=== PATIENT | male | born 1980 | race Caucasian/White ===

== ENCOUNTER 2024-10-01 14:09 | Outpatient (REF) | payer MEDICAID, SELFPAY ==
--- OUTSIDE RECORDS SUMMARY | 2024-10-01 14:14 | XMS_ITS | Encounter Summary ---
Author Organization [employer] Address [address] [facility] [address] [place] [address] Care Team Providers Care Technical Communicator Name Role Phone Peterson Cavazos MD Primary Care Provider [phone] Encounter Details Date Type Department Care Team (Latest Contact Info) Description 10/01/2024 Travel Social History Tobacco Use Types Packs/Day Years Used Date Smoking Tobacco: Never Assessed Housing Stability Answer Date Recorded What is your housing situation today? I do not have housing (Staying with others, in a hotel, in a prison, living outside on the street, on a beach, in a car, or in a park 09/15/[address] you li ve. Do you have problems with any of the following? None of the above 09/15/2024 Food Insecurity Answer Date Recorded Within the past 12 months, y ou worried that your food would run out before you got money to buy more: Never True 09/15/2024 Within the past 12 months,th e food you bought just didn't last and you didn't have enough money to get more: Never True Transportation Answer Date Recorded In the past 12 months, has l ack of transportation kept you from medical appts, meetings, work or from getting things needed for daily living? No 09/15/2024 Utilities Answer Date Recorded In the past 12 months, has t he electric, gas, oil or water company threatened to shut off services in your home? No 09/15/2024 Internet Access Answer Date Recorded Internet Access Q1 No 09/15/2024 Internet Access Q2 I cannot afford it 09/15/2024 Sex and Gender Information Value Date Recorded Sex Assigned at Male 01/21/2022 10:17 AM EDT Legal Sex Male 10:17 AM EDT Gender Identity Male 01/21/2022 10:17 AM EDT Sexual Orientation Straight 01/21/2022 10 :17 AM EDT documented as of this encounter Plan of Treatment Upcoming Encounters Date Type Department Care Team (Late st Contact Info) Description 10/21/2024 3:30 PM EDT Office Visit [facility] [address] [place] [address] Peterson Cavazos MD [address] [place] [address] documented as of this encounter Visit Diagnoses Not on filedocumented in this encounter Care Teams Technical Communicator Relationship Specialty Start Date End Date Peterson Cavazos MD [address] [place] [address] PCP - General Internal Medicine 09/14/24 documented as of this encounter
[2024-10-01 16:02] LABS: MANUAL DIFF FLAG NO
[2024-10-01 16:15] LABS: Hematocrit 40.4 % (42.0-52.0); Hemoglobin 13.8 g/dl (14.0-18.0); Imm Gran Abs Auto 0.09 X10*3/uL (0.00-0.03); Imm Gran Pct Auto 1.1 % (0.0-0.4); Lymphocytes Absolute Auto 2.6 X10*3/uL (1.2-4.9); Mean Corpuscular HGB Conc 34.2 g/dl (31.0-36.0); Mean Corpuscular Hemoglobin 29.0 pg (27.0-33.0); Mean Corpuscular Volume 84.9 fL (80.0-98.0); NRBC Abs Auto 0.000 X10*3/uL (0.0-0.012); NRBC Pct Auto 0.0 /100WBC (0.0-0.2); Platelet Count 258 X10*3/uL (160-400); Red Blood Count 4.76 X10*6/uL (4.60-5.80); White Blood Count 8.0 X10*3/uL (4.8-10.8)
[2024-10-01 16:43] LABS: Alanine Aminotransferase 34 U/L (0-40); Albumin Level 4.2 g/dL (3.5-5.0); Alkaline Phosphatase 78 U/L (39-117); Anion Gap 10 (12-20); Aspartate Amino Transferase 36 U/L (5-37); Blood Urea Nitrogen 12 mg/dL (9-16); Calcium 9.0 mg/dL (8.4-10.2); Carbon Dioxide 26 mmol/L (22-29); Chloride 107 mmol/L (96-108); Cholesterol 233 mg/dL (<200); Estimated Glomerular Filt Rate > 60; HDL Cholesterol 40 mg/dL (>40); Potassium 3.9 mmol/L (3.3-5.1); Sodium 139 mmol/L (135-145); Total Protein 6.6 g/dL (6.5-8.0); Triglycerides 282 mg/dL (<150)
[2024-10-01 16:48] LABS: Hemoglobin A1C 140.7663 umol/L; Total Hemoglobin (HGBA1C) 3638.7942 umol/L
[2024-10-02 08:38] LABS: HIV Num 1 0.07 S/CO (0.00-0.99); ~HepC Num1 0.14 S/CO (0.00-0.79); ~Hepatitis C Antibody Nonreactive (Nonreactive)
== END 2024-10-01 14:10 | disposition home or self-care (01) ==
LOC: HO.HHCL 14:09
PROVIDERS: PCP Internal Medicine; Visit Provider Internal Medicine
DX: E87.70 Fluid overload, unspecified (principal); F22 Delusional disorders
CPT/HCPCS: 36415; 80053; 80061; 82306; 83036; 84146; 84443; 85025; 86803; 87389

== ENCOUNTER 2024-10-22 09:10 | Outpatient (REF) | payer MEDICAID, SELFPAY ==
--- NOTE | ~2024-10-22 | US_ITS ---
EXAMINATION: US TRIPLEX LOWER EXTREMITY, BILATERAL CLINICAL INFORMATION: Bilateral lower extremity edema COMPARISON: None available. TECHNIQUE: Color-flow triplex imaging with spectral analysis and compression Doppler were performed on the bilateral lower extremities. FINDINGS: Respiratory variation, normal compression and augmented flow are noted throughout the bilateral lower extremities. The visualized common femoral vein, superficial femoral vein, profunda femoral vein, popliteal vein and midcalf peroneal and posterior tibial venous segments show no evidence of deep venous thrombosis bilaterally. US/US venous duplex LE BI IMPRESSION: No evidence of deep venous thrombosis involving the bilateral lower extremities. Electronically signed by: Kurtis Bettencourt MD 10/22/2024 10:36 AM EDT
--- OUTSIDE RECORDS SUMMARY | 2024-10-22 09:25 | XMS_ITS | Clinical Summary ---
Author Organization [facility] Address [address] [facility] [address] [place] [address] Care Team Providers Care School Year Nanny Name Role Phone No Pcp, Per Patient Primary Care Provider Unavai lable Allergies No known active allergies Medications nitroglycerin (Rectiv) 0.4 % (w/w) rectal ointmentIndicati ons:Anal fissure Insert 1 inch (1 application) into the rectum every 12 (twelve) hours. 30 g 1 09/12/2021 Active topiramate (Topamax) 100 mg tablet Take 100 mg by mouth in the morning. Active gabapentin (Neurontin) 300 mg capsuleIndicatio ns:Other hemorrhoids Take 1 capsule (300 mg) by mouth in the morning, at noon, and at bedtime for 14 days. 42 capsule 03/22/2022 Active Active Problems No known active problems Social History Tobacco Use Types Packs/Day Years Used Date Smoking Tobacco: Former Cigarettes Q uit: 2020 Smokeless Tobacco: Former Snuff, Chew Tobacco Cessation:Counseling Given: Not Answered Alcohol Use Standard Drinks/Week Comments Not Currently 0 (1 standard drink = 0.6 oz pur e alcohol) Sex and Gender Information Value Date Recorded Sex Assigned at Male 04/28/2021 1:28 AM EST Legal Sex Male 1:28 AM EST Gender Identity Not on file Sexual Orientation Not on file Last Filed Vital Signs Vital Sign Reading Time Taken Comments Blood Pressure 162/72 03/19/2023 11:42 AM EST Pulse 74 03/19/2023 11:42 AM EST Temperature 36.6 C (97.8 F) 03/19/2023 11:42 AM EST Respiratory Rate 16 03/19/2023 11:42 AM EST Oxygen Saturation 97% 03/19/2023 11:42 AM EST Inhaled Oxygen Concentration - - Weight 121.6 kg (268 lb) 03/19/2023 11:42 AM EST Height 188 cm (6' 2 ) 03/19/2023 11:42 AM EST Body Mass Index 34.41 03/19/2023 11:42 AM EST Plan of Treatment Health Maintenance Due Date Last Done Comments CT Colonography 1978 Colonoscopy 1978 Colorectal Cancer Screening 1978 FIT-DNA 1978 FIT 1978 FOBT 1978 HIV Screening 1978 Lipid Panel 1978 Sigmoidoscopy 1978 MMR Vaccines (1 of 1 - Stand mahamed series) 1979 Hepatitis C Screening 1996 Hepatitis B Vaccines (1 of 3 - 19+ 3-dose series) 1997 DTaP/Tdap/Td Vaccines (1 - Tdap) 10/26/2007 10/25/19 08 COVID-19 Vaccine ( - 2023-2 5 season) 2023 Depression Screening 03/24/2024 Influenza Vaccine (#1) 2024 HIB Vaccines Aged Out No longer eligi ble based on patient's age to complete this topic HPV Vaccines Aged Out No longer eligi ble based on patient's age to complete this topic Hepatitis A Vaccines Aged Out No long er eligible based on patient's age to complete this topic IPV Vaccines Aged Out No longer eligi ble based on patient's age to complete this topic Meningococcal B Vaccine Aged Out No l onger eligible based on patient's age to complete this topic Meningococcal Vaccine Aged Out No bryan navi eligible based on patient's age to complete this topic Pneumococcal Vaccine: Pediat rics (0 to 5 Years) and At-Risk Patients (6 to 49 Years) Aged Out No longer eligi ble based on patient's age to complete this topic Rotavirus Vaccines Aged Out No longer eligible based on patient's age to complete this topic Insurance [facility] ACO [facility] ACO Care Teams School Year Nanny Relationship Specialty Start Date End Date No Pcp, Per Patient [place] PCP - General 02/16/22
--- OUTSIDE RECORDS SUMMARY | 2024-10-22 09:25 | XMS_ITS | Clinical Summary ---
Author Organization [employer] Address [address] [place] [address] [address] [place] [address] Care Team Providers Care Social Services Manager Name Role Phone Peterson Cavazos MD Primary Care Provider [phone] Medications * This document contains information received from the source organization and may not represent a complete record from that organization. risperiDONE (RisperDAL) 1 MG tablet Take 1.5 mg po every morning and 4 mg at 8 pm Active divalproex (Depakote) 500 MG EC tablet Take 500 mg po every morning and 1000 mg every evening Active paliperidone (Invega) 6 MG 24 hr tablet Take 6 mg by mouth in the morning. Do not crush, chew, or split. Active Active Problems Problem Noted Date Diagnosed Date Delusional disorder 10/01/2024 Assessment & Plan (10/01/2024 4:56 PM EDT): I explained to patient he would have to continue medication prescribed by the specialist psychiatrist, if he is not comfortable with the medication or if he is having side effects from the medication this discussion has to be with the psychiatrist in order for him to change/reduce the dose if it is needed Hospital discharge follow-up 10/01/2024 Fluid overload 10/01/2024 Assessment & Plan (10/01/2024 4:55 PM EDT): I will order echocardiogram and lower extremity duplex Patient will be contacted with results Patient to be follow-up by PCP Bilateral lower extremity edema 10/01/2024 Encounters Date Type Department Care Team Description 10/12/2024 Patient Outreach [facility] [address] [place] [phone] Peterson Cavazos MD Care Coordination ([facility] Jovany Vieyra, TC #2 Sdoh f/u call_mailbox full) 10/12/2024 Patient Outreach [address] [address] Peterson Cavazos MD Care Management (C3- 1st f/u call #2. Unable to leave v/m.) 10/05/2024 Patient Outreach [address] [address] Peterson Cavazos MD Care Coordination ([facility] Jovany Vieyra Sdal f/u call_mailbox full ) 10/05/2024 Patient Outreach [address] [address] Peterson Cavazos MD Care Management (C3- f/u call lvm) 10/04/2024 Results Follow-Up [address] [address] Jessika Parham MD CBC auto differential, Comprehensive Metabolic Panel, Hemoglobin A1c, Additional followed-up results: 6 10/01/2024 1:00 PM EDT Office Visit [address] [address] Jessika Parham MD Delusional disorder ([facility]) (Primary Dx); Hospital discharge follow-up; Bilateral lower extremity edema; Hypervolemia, unspecified hypervolemia type 10/01/2024 Travel 09/30/[address] [address] Jessika Parham MD HDF OUTREACH 09/30/[address] [address] Peterson Cavazos MD Chart Prep 09/17/[address] [address] Peterson Cavazos MD Record Request 09/15/2024 Patient Outreach [address] [address] Peterson Cavazos MD Care Coordination (C3/Jovany SR Sdal assessment done) 09/14/2024 Plan of Care Documentation [address] [address] 09/14/2024 Patient Outreach [address] [address] Nanette Vieyra RN Care Management (C3CM- initial assessment/ enrollment) 09/14/2024 Patient Outreach [address] [address] Nanette Vieyra RN Error (VOID this visit) 09/13/2024 Patient Outreach [address] [address] Deyanira Hirsch RN Care Coordination (C3/Brii Vieyra, Initial assessment appt reminder ) 09/03/2024 Telephone [facility] [address] [place] [address] Karo Ricci MA Chat Prep 09/03/2024 Patient Outreach [address] [address] Nanette Vieyra RN 08/30/2024 Patient Outreach [facility] [address] [place] [address] Devang Chau MD Transition Of Care (Tcm) 08/23/[address] [address] Liv Gaitan, PushpaD Transition Of Care (Tcm) (HDF unscheduled) 08/20/2024 Travel 08/20/2024 Patient Outreach [address] [address] Deyanira Hirsch, FRANCES Care Coordination (C3/ORIN Vieyra, Initial assessment, hosp f/u - new pt appt scheduled) 08/03/2024 Patient Outreach [address] [address] Jovany Vieyra Care Coordination (C3/Brii Vieyra, TC #6 initial outreach_lvm ) 07/26/2024 Patient Outreach [address] [place] [address] Nanette Vieyra RN from Last 3 Months Immunizations Immunization Administration Dates Next Due Td (adult), unspecified 10/25/2007 Social History Tobacco Use Types Packs/Day Years Used Date Smoking Tobacco: Never Assessed Housing Stability Answer Date Recorded What is your housing situation today? I do not have housing (Staying with others, in a hotel, in a correction, living outside on the street, on a [...] Orientation Straight 01/21/2022 10 :17 AM EDT Last Filed Vital Signs Vital Sign Reading Time Taken Comments Blood Pressure 112/62 10/01/2024 1:09 PM EDT Pulse 88 10/01/2024 1:09 PM EDT Temperature 36.6 C (97.8 F) 10/01/2024 1:09 PM EDT Respiratory Rate 20 10/01/2024 1:09 PM EDT Oxygen Saturation - - Inhaled Oxygen Concentration - - Weight 131 kg (289 lb 9.6 oz) 10/01/2024 1:09 PM EDT Height 188 cm (6' 2 ) 10/01/2024 1:09 PM EDT Body Mass Index 37.18 10/01/2024 1:09 PM EDT Plan of Treatment Health Maintenance Due Date Last Done Comments CT Colonography 1978 Colonoscopy 1978 Colorectal Cancer Screening 1978 Depression Screening 1978 FIT DNA/Cologuard 1978 FIT 1978 FOBT 1978 Sigmoidoscopy 1978 Disability Screening 1978 Alcohol/Substance Use Screening 1990 Tobacco Screening 1990 Family Planning (PISQ) 1993 Hepatitis B Vaccines (1 of 3 - 19+ 3-dose series) 1997 DTaP/Tdap/Td Vaccines (1 - Tdap) 10/26/2007 10/25/19 08 COVID-19 Vaccine (1 - 2023-2 5 season) 2023 Influenza Vaccine (#1) 2024 SDOH Screening 09/15/2025 09/15/2024 Diabetes: Hemoglobin A1C 10/01/2025 10/01/2024 Zoster Vaccines (1 of 2) 2028 Lipid Panel 10/01/2029 10/01/2024 RSV Patients and Pa tients Aged 60 years or older (1 - 1-dose 75+ series) 2053 HIV Screening Completed 10/01/2024 Hepatitis C Screening Completed 10/01/2024 HIB Vaccines Aged Out No longer eligi [...] 5 Years) and At-Risk Patients (6 to 49) Years Aged Out No longer eligi ble based on patient's age to complete this topic RSV under 20 months Aged Out No longe r eligible based on patient's age to complete this topic Rotavirus Vaccines Aged Out No longer eligible based on patient's age to complete this topic Procedures Procedure Name Priority Date/Time Associated Diagnosis Comments PROLACTIN Routine 10/01/2024 2:33 PM EDT Delusional disorder (CMS/HCC) TSH W/REFLEX TO FT4 Routine 10/01/2024 2 :33 PM EDT Hypervolemia, unspecified hypervolemia type VITAMIN D,25-OH,TOTAL,IA Routine 10/01/2024 2:33 PM EDT Hypervolemia, unspecified hypervolemia type LIPID PANEL, STANDARD Routine 10/01/2024 2:33 PM EDT Hypervolemia, unspecified hypervolemia type HEPATITIS C AB W/REFL TO HCV RNA, QN, PCR Routine 10/01/2024 2:33 PM EDT Hypervolemia, unspecified hypervolemia type HIV 1/2 ANTIGEN/ANTIBODY, FOURTH GENERATION W/RFL Routine 10/01/2024 2:33 PM EDT Hypervolemia, unspecified hypervolemia type HEMOGLOBIN A1C Routine 10/01/2024 2:33 PM EDT Hypervolemia, unspecified hypervolemia type COMPREHENSIVE METABOLIC PANEL Routine 10/01/2024 2:33 PM EDT Hypervolemia, unspecified hypervolemia type CBC WITH AUTO DIFFERENTIAL Routine 10/01/2024 2:33 PM EDT Hypervolemia, unspecified hypervolemia type from Last 3 Months Results * Vitamin D, 25-Hydroxy, Total, Immunoassay (10/01/2024 2:33 PM EDT) Vitamin D 25-OH Total 57.4 >30 ng/mL [facility] Comment: Health Based Reference Values*< 20 ng/mL Hpxytqnen98-68 ng/mL Insufficient> 30 ng/mL Sufficient*Holick MF. N Engl J Med. 2007;357:266-280There is no well-established upper level of normal vitamin Dlevels. Some laboratories use 50 ng/mL as an upper limit ofnormal. However, toxicity is patient-dependent and may occurat any level. Careful correlation with the patient'spresentation is necessary and, if there is concern forvitamin D toxicity, treatment should be consideredirrespective of the serum level.Care must be taken in interpreting Vitamin D results fromdifferent laboratories and methodologies. Published datademonstrated that results from patients undergoinghemodialysis may show a negative bias when tested withvarious automated 25-OH vitamin D assays when compared toLC-MS/MS.When testing samples from patients whose predominant form ofVitamin D is Vitamin D2, such as patients receiving VitaminD2 supplementation, results that are subtherapeutic shouldbe confirmed with another method such as LC-MS/MS. Blood Venous blood specimen / Unknown 10/01/2024 2:33 PM EDT 10/01/2024 3:55 PM EDT us Jessika Sandoval MD LAB BLOOD ORDERABLES Final Result Performing Organization Address City/[facility]/ZIP Co de Phone Number [facility] [address] [place] [address] [phone] * TSH with Reflex to Free T4 (10/01/2024 2:33 PM EDT) TSH reflex Free T4 1.66 0.32 - 4.0 uIU/mL [facility] Blood Venous blood specimen / Unknown 10/01/2024 2:33 PM EDT 10/01/2024 3:55 PM EDT us Jessika Sandoval MD LAB BLOOD ORDERABLES Final Result [facility] [address] [place] [phone] * (ABNORMAL) CBC auto differential (10/01/2024 2:33 PM EDT) White Blood Count 8.0 4.8 - 10.8 X10*3/uL [facility] Red Blood Count 4.76 4.60 - 5.80 X10*6/uL [facility] Hemoglobin 13.8(L) 14.0 - 18.0 g/dl [facility] Hematocrit 40.4(L) 42.0 - 52.0 % [facility] Mean Corpuscular Volume 84.9 80.0 - 98.0 fL [facility] Mean Corpuscular Hemoglobin 29.0 27.0 - 33.0 pg [facility] Mean Corpuscular HGB Conc 34.2 31.0 - 36.0 g/dl [facility] Red Cell Distribution Width 13.4 11.0 - 16.0 % [facility] Platelet Count 258 160 - 400 X10*3/uL [facility] Mean Platelet Volume 11.8 9.4 - 12.4 fL [facility] Neutrophils Percent Auto 55.0 45 - 73 % [facility] Imm Gran Pct Auto 1.1(H) 0.0 - 0.4 % [facility] Lymphocytes Percent Auto 31.9 20 - 40 % [facility] Monocytes Percent Auto 5.4 2 - 11 % [facility] Eosinophils Percent Auto 5.3(H) 0 - 4 % [facility] Basophils Percent Auto 1.3 0 - 2 % [facility] NRBC Pct Auto 0.0 0.0 - 0.2 /100WBC [facility] Neutrophils Absolute Auto 4.4 2.0 - 8.3 x10*3/uL [facility] Imm Gran Abs Auto 0.09(H) 0.00 - 0.03 X10*3/uL [facility] Lymphocytes Absolute Auto 2.6 1.2 - 4.9 X10*3/uL [facility] Monocytes Absolute Auto 0.4 0.1 - 1.2 X10*3/uL [facility] Eosinophils Absolute Auto 0.4 0.0 - 0.4 X10*3/uL [facility] Basophils Absolute Auto 0.1 0.0 - 0.2 X10*3/uL [facility] NRBC Abs Auto 0.000 0.0 - 0.012 X10*3/uL [facility] Blood Venous blood specimen / Unknown 10/01/2024 2:33 PM EDT 10/01/2024 3:55 PM EDT Jessika Sandoval MD LAB BLOOD ORDERABLES Final Result Performing Organization Address [facility] Co de Phone Number [facility] [address] [place] [address] [phone] * Hepatitis C Antibody with Reflex to HCV, RNA, Quantitative, Real-Time PCR (10/01/2024 2:33 PM EDT) Pathologist [facility] Hepatitis C Antibody Nonreactive Nonreactive [facility] Comment:Antibodies to HCV no t detected; does not exclude early acuteHCV infection. Blood Venous blood specimen / Unknown 10/01/2024 2:33 PM EDT 10/01/2024 3:55 PM EDT Jessika Sandoval MD LAB BLOOD ORDERABLES Final Result Performing Organization Address [facility] Co de Phone Number [facility] [address] [place] [phone] * (ABNORMAL) Prolactin (10/01/2024 2:33 PM EDT) Prolactin 24.2(A) 2.0 - 18.0 ng/mL [facility] Comment:THIS TEST WAS PERFOR MED AT:[employer] [place] [phone] ESPANA MD Blood Venous blood specimen / Unknown 10/01/2024 2:33 PM EDT 10/01/2024 3:55 PM EDT Jessika Sandoval MD LAB BLOOD ORDERABLES Final Result Performing Organization Address City/[facility]/ZIP Co de Phone Number [facility] [address] [place] [phone] * HIV-1/2 Antigen and Antibodies, Fourth Generation, with Reflexes (10/01/2024 2:33 PM EDT) HIV AB/AG Nonreactive Nonreactive [facility] Comment:HIV-1 p24 Ag and/or HIV-1/HIV-2 Ab not detected.A test result that is nonreactive does not exclude thepossibility of exposure to or infection with HIV-1 and/orHIV-2. Nonreactive results in this assay for individualswith prior exposure to HIV-1 and/or HIV-2 may be due toantigen and antibody levels that are below the limit ofdetection of this assay.The [employer] HIV Ag/Ab Combo assay result andsupplemental assay results should be interpreted inconjunction with the patient's clinical presentation,history and other laboratory results. If the results areinconsistent with clinical evidence, additional testing issuggested to confirm the result. Blood Venous blood specimen / Unknown 10/01/2024 2:33 PM EDT 10/01/2024 3:55 PM EDT us Jessika Sandoval MD LAB BLOOD ORDERABLES Final Result Performing Organization Address [facility] Co de Phone Number [facility] [address] [place] [phone] [phone] * Hemoglobin A1c (10/01/2024 2:33 PM EDT) Hemoglobin A1c 5.7 <6.0 % [facility] Comment:Hemoglobin A1C Refer ence Range Adults: 4.8 - 6.0 % Non diabetic: < 6.0 % Goal: < 7.0 %Additional Action Suggested: > 8.0 %Note: Hemoglobin A1c results are invalid for patients with abnormal amounts of HbF. Blood transfusions may impact the HbA1c concentration in the patient sample. Estimated Average Glucose 117 mg/dL [facility] Comment:eAG = Estimated ave rage glucose which is %A1C expressed asaverage glucose, using the formula of the W2N-VfqzpuaUwzxjmy Glucose study (ADAG), Diabetes Care, Vol.31,#8,Oct. 2007 Blood Venous blood specimen / Unknown 10/01/2024 2:33 PM EDT 10/01/2024 3:55 PM EDT us Jessika Sandoval MD LAB BLOOD ORDERABLES Final Result Performing Organization Address City/[facility] Co de Phone Number [facility] [address] [place] [phone] * (ABNORMAL) Lipid Panel, Standard (10/01/2024 2:33 PM EDT) Triglycerides 282(H) <150 mg/dL [facility] Comment:Desirable Triglyceri de: less than 150 mg/dLBorderline High Triglyceride 150-199 mg/dLHigh Triglyceride: 200-499 mg/dLVery High Triglyceride: greater than or equal to 5OO mg/dL Cholesterol 233(H) <200 mg/dL [facility] Comment:Desirable Cholestero l: less than 200 mg/dLBorderline High Cholesterol: 200-239 mg/dLHigh Cholesterol: greater than 239 mg/dL LDL Cholesterol Calculated 137(H) <100 mg/dL [facility] Comment:Desirable LDL: less than 100 mg/dLNear Optimal/Above Optimal LDL: 110- 129 mg/dLBorderline High LDL: 130-159 mg/dLHigh LDL: 160-189 mg/dLVery High LDL: greater than or equal to 190 mg/dL HDL Cholesterol 40(L) >40 mg/dL [facility] Comment:Desirable HDL: great er than 40 mg/dL Note: This HDL assay may give artificially low results in patients with liver disease. Blood Venous blood specimen / Unknown 10/01/2024 2:33 PM EDT 10/01/2024 3:55 PM EDT us Jessika Sandoval MD LAB BLOOD ORDERABLES Final Result [facility] [address] [place] [phone] [phone] * (ABNORMAL) Comprehensive Metabolic Panel (10/01/2024 2:33 PM EDT) Sodium 139 135 - 145 mmol/L [facility] Potassium 3.9 3.3 - 5.1 mmol/L [facility] Chloride 107 96 - 108 mmol/L [facility] Carbon Dioxide 26 22 - 29 mmol/L [facility] Anion Gap 10(L) 12 - 20 [facility] Urea Nitrogen (BUN) 12 9 - 16 mg/dL [facility] Creatinine, Serum 0.91 0.5 - 1.4 mg/dL [facility] Estimated Glomerular Filt Rate >60 [facility] Comment:Chronic Kidney Disea se: Estimated GFR < 60 mL/min/1.89g0Qzviey Kidney Disease: Estimated GFR < 15 mL/min/1.73m2 Glucose 101 60 - 115 mg/dL [facility] Calcium 9.0 8.4 - 10.2 mg/dL [facility] Bilirubin, Total 0.2 0.0 - 1.0 mg/dL [facility] Aspartate Amino Transferase 36 5 - 37 U/L [facility] Alanine Aminotransferase 34 0 - 40 U/L [facility] Total Protein 6.6 6.5 - 8.0 g/dL [facility] Albumin Level 4.2 3.5 - 5.0 g/dL [facility] Alkaline Phosphatase 78 39 - 117 U/L [facility] Blood Venous blood specimen / Unknown 10/01/2024 2:33 PM EDT 10/01/2024 3:55 PM EDT us Jessika Sandoval MD LAB BLOOD ORDERABLES Final Result [facility] [address] [place] [phone] from Last 3 Months Insurance [facility] C3 Care Teams Social Services Manager Relationship Specialty Start Date End Date Peterson Cavazos MD [address] [place] [phone] PCP - General Internal Medicine 09/14/24
== END 2024-10-22 09:11 | disposition home or self-care (01) ==
LOC: HO.US 09:10
PROVIDERS: Visit Provider Internal Medicine
DX: R60.0 Localized edema (principal); E87.70 Fluid overload, unspecified
CPT/HCPCS: 93970

== ENCOUNTER → 2024-10-22 09:13 | Outpatient (BNV) | payer MEDICAID, SELFPAY | PROVIDERS: Visit Provider Radiology Diagnostic Radiology | DX: R22.43 Localized swelling, mass and lump, lower limb, bilateral (principal) | CPT/HCPCS: 93970 ==

== ENCOUNTER → 2024-11-18 12:43 | Outpatient (REF) | payer MEDICAID, SELFPAY ==
--- NOTE | 2024-11-18 12:48 | CA_ITS ---
Transthoracic Echocardiogram Patient (Last, First, Middle): Phoenix Santos, Gender: Male Date of : 1980 Age: 44 Procedure Date: 11/18/2024 Procedure Type: Transthoracic Echocardiogram Location: OP Height: 187.96 cm Weight: 122.02 kg BSA: 2.46 m2 Heart Rate: bpm BP: 118 / 76 mmHg Apprentice Instrument Technician: TO Referring MD: Jessika Sandoval MD Symptoms: R60.0 BLLE E87.70 HYPERVOLEMIA Study Quality: Adequate w contrast ECG Rhythm: Sinus Conclusions: - The left ventricular systolic function is normal. The calculated ejection fraction is 58% by biplane method. - No obvious valvular pathology seen on this study. Findings Procedure Information Contrast agent, definity, is being given per protocol without apparent complications. Left Ventricle Normal left ventricular cavity size. There is normal left ventricular wall thickness. The left ventricular systolic function is normal. The calculated ejection fraction is 58% by biplane method. There is no evidence of regional wall motion abnormalities. Diastolic function is normal for age. Right Ventricle Mildly increased right ventricular cavity size. There is normal right ventricular systolic function. Atria Both atria are normal in size. Aortic Valve There is a normal trileaflet aortic valve. There is no aortic valve stenosis. There is no aortic valve regurgitation. Mitral Valve The mitral valve appears normal. There is no mitral valve regurgitation. There is no mitral valve stenosis. Pulmonic Valve The pulmonic valve is likely normal. Tricuspid Valve There is no tricuspid valve regurgitation. Tricuspid regurgitation envelope is inadequate for calculation of right ventricular systolic pressure. Great Vessels The asc aorta is normal in size. Venous The inferior vena cava is mildly dilated and collapses greater than 50% with inspiration. Pericardium/Pleural There is no evidence of pericardial effusion. Prior Study Comparison No prior study available for comparison. Recommendations, Care & Conclusions No obvious valvular pathology seen on this study. Measurements 2D Linear Measurements IVSd: 0.97 0.6-0.9/0.6-1.0 cm LVIDd: 5.49 3.9-5.3/4.2-5.9 cm LVIDd Index: 2.23 2.4-3.2/2.2-3.1 cm/m2 LVIDs: 2.99 2.0-3.6 cm LVPWd: 0.95 0.7-1.1 cm LA Diam: 3.80 2.7-3.8/3.0-4.0 cm LAIDs Index: 1.54 1.5-2.3 cm/m2 LV Mass: 251.23 67-162/88-224 g LV Mass Index: 102.12 43-95/49-115 g/m2 LVOT Diam: 2.70 3.0+(-)1.3 cm 2D Systolic Function EF 4C: 53.60 >55% EF 2C: 61.70 >55% EF BiP: 58.10 >55% Mitral Valve MV Pk E: 0.96 MV PK A: 0.36 MV Decel Time: 153.00 E/A: 2.70 E'Lateral: 9.25 E'Medial: 8.16 E/E' Med: 11.70 E/E' Lat: 10.30 PHT: 45.00 MVA PHT: 4.89 Decel Adair: 6.26 Aortic Valve AoV Pk Sigifredo: 1.28 AoV Mn Sigifredo: 0.86 AoV VTI: 0.27 AoV Pk Grad: 7.00 Aov Mn Grad: 3.00 SINAN Cont.VTI: 5.26 LVOT LVOT Pk Sigifredo: 1.21 LVOT Mn Sigifredo: 0.77 LVOT VTI: 0.25 LVOT Pk Grad: 6.00 LVOT Mn Grad: 3.00 LVOT Diam: 2.70 LVOT Area: 5.73 Diastolic Function MV Pk E: 0.96 MV Pk A: 0.36 E/A: 2.70 E'Medial: 8.16 E/E' Med: 11.70 E' Laterial: 9.25 E/E' Lat: 10.30 Right Ventricle TAPSE (mm): 31.50 TVS' Sigifredo: 14.10 Tricuspid Valve RA Press: 8.00 Great Vessels Aorta Sinus of Valsalva: 3.71 2.0-3.5 cm Ao Asc: 2.80 2.1-3.4 cm Updated in Other Vendor System with Status of Final Roshan Caldwell MD electronically signed on 11/19/2024 11:57:21 AM with status of Final
--- OUTSIDE RECORDS SUMMARY | 2024-11-18 13:21 | XMS_ITS | Clinical Summary ---
Author Organization [facility] Address [address] [facility] [address] [place] [address] Care Team Providers Care Steam Cleaner Name Role Phone No Pcp, Per Patient [...] patient's age to complete this topic Insurance [facility] ACO [facility] A[facility] Care Teams Steam Cleaner Relationship Specialty Start Date End Date No Pcp, Per Patient NE PCP - General 02/16/22
--- OUTSIDE RECORDS SUMMARY | 2024-11-18 13:21 | XMS_ITS | Encounter Summary ---
Author Organization [employer] [facility] Address [address] [place] [address] [place] [address] Care Team Providers Care Bilingual Counter Sales Retail Name Role Phone Peterson Cavazos MD Primary Care Provider [phone] Peterson Cavazos MD Primary Care Provider [phone] Encounter Details Date Type Department Care Team (Latest Contact Info) Description 10/09/2018 Abstract [facility] CONVERSIONS Dental, Provider, DDS Social History Tobacco Use Types Packs/Day Years Used Date Smoking Tobacco: Never Assessed Sex and Gender Information Value Date Recorded Sex Assigned at Male 01/21/2022 10:17 AM EDT Legal Sex Male 10:17 AM EDT Gender Identity Male 01/21/2022 10:17 AM EDT Sexual Orientation Straight 01/21/2022 10 :17 AM EDT documented as of this encounter Plan of Treatment Not on file documented as of this encounter Visit Diagnoses Not on filedocumented in this encounter Care Teams Bilingual Counter Sales Retail Relationship Specialty Start Date End Date Peterson Cavazos MD [address] [place] [address] PCP - General Internal Medicine 10/02/18 04/10/23 Peterson Cavazos MD [address] [place] [address] PCP - General Internal Medicine 09/14/24 documented as of this encounter
--- OUTSIDE RECORDS SUMMARY | 2024-11-18 13:21 | XMS_ITS ---
Author Organization [employer] [facility] Address [address] [place] [address] Care Team Providers Care Central Scheduler Name Role Phone Peterson Cavazos MD Primary Care Provider [phone] CM Complex Status:Enrolled (Active) Start date:06/18/2024 Enrollment date:09/14/2024 Enrollment reason:[facility] Overview [facility] Notification- Pt admitted to [facility] in [facility] on 06/16/24 for major depressive d/o. Case Team Name Relationship Phone Nanette Vieyra RN(Responsible Staff) Registered Nurse [phone] Continued Care and Services Coordination
--- OUTSIDE RECORDS SUMMARY | 2024-11-18 13:21 | XMS_ITS | Clinical Summary ---
Author Organization [employer] Address [address] [place] [address] [address] [place] [address] Care Team Providers Care Night Warehouse Selector Name Role Phone Peterson Cavazos MD Primary Care Provider [phone] Medications * This document contains information received [...] Encounters Date Type Department Care Team Description 11/10/2024 Patient Outreach [facility] [address] [place] [address] Peterson Cavazos MD Care Coordination ([facility]/Brii Vieyra, [facility] f/u call today) 11/10/2024 Patient Outreach [address] [address] Peterson Cavazos MD Care Management (A3AD-2wj f/u call) 10/25/2024 Patient Outreach [address] [address] Peterson Cavazos MD Care Management (C3- f/u call #3. Unable to leave v/m.) 10/12/2024 Patient Outreach [address] [address] Peterson Cavazos MD Care Coordination ([facility] Jovany Vieyra, TC #2 Sdpr f/u call_mailbox full) 10/12/2024 Patient Outreach [address] [address] Peterson Cavazos MD Care Management ([facility]- 1st f/u call #2. Unable to leave v/m.) 10/05/2024 Patient Outreach [address] [address] Peterson Cavazos MD Care Coordination ([facility] Jovany Vieyra [facility] f/u call_mailbox full ) 10/05/2024 Patient Outreach [address] [address] Peterson Cavazos MD Care Management ([facility]- f/u call [facility]) 10/04/2024 Results Follow-Up [address] [address] Jessika Parham MD CBC auto differential, Comprehensive Metabolic Panel, Hemoglobin A1c, Additional followed-up results: 7 10/01/2024 1:00 PM EDT Office Visit [address] [address] Jessika Parham MD Delusional disorder (CMS/HCC) (Primary Dx); Hospital discharge follow-up; Bilateral lower extremity edema; Hypervolemia, unspecified hypervolemia type 10/01/2024 Travel 09/30/[address] [address] Jessika Parham MD HDF OUTREACH 09/30/[address] [address] Peterson Cavazos MD Chart Prep 09/17/[address] [address] Peterson Cavazos MD Record Request 09/15/2024 Patient Outreach [address] [address] Peterson Cavazos MD Care Coordination (C3/W, Jovany Vieyra, [facility] assessment done) 09/14/2024 Plan of Care Documentation [address] [address] 09/14/2024 Patient Outreach [address] [address] Nanette Vieyra RN Care Management (C3CM- initial assessment/ enrollment) 09/14/2024 Patient Outreach [address] [address] Nanette Vieyra, FRANCES Error (VOID this visit) 09/13/2024 Patient Outreach [address] [address] Deyanira Hirsch RN Care Coordination (C3/W Jovany Vieyra, Initial assessment appt reminder ) 09/03/2024 Telephone [facility] [address] [place], [place] [phone] Karo Ricci MA Chat Prep 09/03/2024 Patient Outreach [address] [address] Nanette Vieyra RN 08/30/2024 Patient Outreach [facility] [address] [place] [address] Devang Chau MD Transition Of Care (Tcm) 08/23/[address] [address] Liv Gaitan PharmD Transition Of Care (Tcm) (HDF unscheduled) 08/20/2024 Travel 08/20/2024 Patient Outreach [facility] [address] [place] [address] Deyanira Hirsch RN Care Coordination (C3CM/CHW Jovany Vieyra, Initial assessment, hosp f/u - new pt appt scheduled) from Last 3 Months Immunizations Immunization Administration Dates Next Due Td (adult), unspecified 10/25/2007 Social History Tobacco Use Types Packs/Day Years Used Date Smoking Tobacco: Never Assessed Housing Stability Answer Date Recorded What is your housing situation today? I do not have housing (Staying with others, in a hotel, in a alf, living outside on the street, on a [...] - Tdap) 10/26/2007 10/25/19 08 COVID-19 Vaccine (2023-2 5 season) 2023 Influenza Vaccine (#1) 2024 [...] Procedure Name Priority Date/Time Associated Diagnosis Comments VASC US LOWER EXTREMITY VENOUS DUPLEX BILATERAL Routine 10/22/2024 9:23 AM EDT Bilateral lower extremity edema Hypervolemia, unspecified hypervolemia type PROLACTIN Routine 10/01/2024 2:33 PM EDT Delusional [...] type from Last 3 Months Results * Vascular US lower extremity venous duplex bilateral (10/22/2024 9:23 AM EDT) 10/22/2024 9:23 AM EDT Narrative [facility] - 10/22/2024 10:39 AM EDT [address] [address] Ultrasound Report Signed Patient: Phoenix Santos MR#: [id number] : 1980 Acct:[id number] Age/Sex: 44 / M ADM Date: 10/22/24 Loc: HO.US Attending Dr: Jessika Sandoval MD Ordering Physician: Jessika Parham MD Date of Service: 10/22/24 Procedure(s): US venous duplex LE BI Accession Number(s): [id number] cc: Jessika Parham MD EXAMINATION: US TRIPLEX LOWER EXTREMITY, BILATERAL CLINICAL INFORMATION: Bilateral lower extremity edema COMPARISON: None available. TECHNIQUE: Color-flow triplex imaging with spectral analysis and compression Doppler were performed on the bilateral lower extremities. FINDINGS: Respiratory variation, normal compression and augmented flow are noted throughout the bilateral lower extremities. The visualized common femoral vein, superficial femoral vein, profunda femoral vein, popliteal vein and midcalf peroneal and posterior tibial venous segments show no evidence of deep venous thrombosis bilaterally. US/US venous duplex LE BI IMPRESSION: No evidence of deep venous thrombosis involving the bilateral lower extremities. Electronically signed by: Kurtis Bettencourt MD 10/22/2024 10:36 AM EDT RP Dictated By: Kurtis Bettencourt MD Signed By: <Electronically signed by Kurtis Bettencourt MD in OV> 10/22/24 1036 DD/ 0923 TD/TT: 10/22/24 0938 Blast Setter: Procedure Note Donotuseinterpreter, Image - 10/22/[address] [address] Ultrasound Report Signed Patient: Phoenix SantosMR#: [id number] : 1980Acct:[id number] Age/Sex: 44 / MADM Date: 10/22/24 Loc: HO.US Attending Dr: Jessika Sandoval MD Ordering Physician: Jessika Parham MD Date of Service: 10/22/24 Procedure(s): US venous duplex LE BI Accession Number(s): [id number] cc: Jessika Parham MD EXAMINATION: US TRIPLEX LOWER EXTREMITY, BILATERAL CLINICAL INFORMATION: Bilateral lower extremity edema COMPARISON: None available. TECHNIQUE: Color-flow triplex imaging with spectral analysis and compression Doppler were performed on the bilateral lower extremities. FINDINGS: Respiratory variation, normal compression and augmented flow are noted throughout the bilateral lower extremities. The visualized common femoral vein, superficial femoral vein, profunda femoral vein, popliteal vein and midcalf peroneal and posterior tibial venous segments show no evidence of deep venous thrombosis bilaterally. US/US venous duplex LE BI IMPRESSION: No evidence of deep venous thrombosis involving the bilateral lower extremities. Electronically signed by: Kurtis Bettencourt MD 10/22/2024 10:36 AM EDT Dictated By: Kurtis Bettencourt MD Signed By: <Electronically signed by Kurtis Bettencourt MD in OV> 10/22/24 1036 DD/ 0923 TD/TT: 10/22/24 0938 Blast Setter: us Jessika Sandoval MD CV VASCULAR PROCEDURE S Final Result [facility] [address] [place] [phone] * Vitamin D, 25-Hydroxy, Total, Immunoassay (10/01/2024 2:33 PM EDT) Vitamin D 25-OH Total 57.4 >30 ng/mL [facility] Comment: Health Based Reference Values*< 20 ng/mL Qlyyoiyss74-20 ng/mL Insufficient> 30 ng/mL Sufficient*Tl SANDOVAL. N Engl J Med. 2007;357:266-280There is no [...] BLOOD ORDERABLES Final Result Performing Organization Address [facility]/ZIP Co de Phone Number [facility] [address] [place] [phone] * TSH with Reflex to Free T4 (10/01/2024 2:33 PM EDT) TSH reflex Free T4 1.66 0.32 - 4.0 uIU/mL [facility] Blood Venous blood specimen / Unknown 10/01/2024 2:33 PM EDT 10/01/2024 3:55 PM EDT us Jessika Sandoval MD LAB BLOOD ORDERABLES Final Result Performing Organization Address City/[facility]/ZIP Co de Phone Number [facility] [address] [place] [phone] * (ABNORMAL) CBC auto differential (10/01/2024 2:33 PM EDT) White Blood Count 8.0 4.8 - 10.8 X10*3/uL [facility] Red Blood Count 4.76 4.60 - 5.80 X10*6/uL [facility] Hemoglobin 13.8(L) 14.0 - 18.0 g/dl [facility] Hematocrit 40.4(L) 42.0 - 52.0 % [facility] Mean Corpuscular Volume 84.9 80.0 - 98.0 fL [facility] Mean Corpuscular Hemoglobin 29.0 27.0 - 33.0 pg [facility] Mean Corpuscular HGB Conc 34.2 31.0 - 36.0 g/dl [facility] Red Cell Distribution Width 13.4 11.0 - 16.0 % [facility] Platelet Count 258 160 - 400 X10*3/uL [facility] Mean Platelet Volume 11.8 9.4 - 12.4 fL [facility] Neutrophils Percent Auto 55.0 45 - 73 % [facility] Imm Gran Pct Auto 1.1(H) 0.0 - 0.4 % [facility] Lymphocytes Percent Auto 31.9 20 - 40 % [facility] Monocytes Percent Auto 5.4 2 - 11 % [facility] Eosinophils Percent Auto 5.3(H) 0 - 4 % [facility] Basophils Percent Auto 1.3 0 - 2 % [facility] NRBC Pct Auto 0.0 0.0 - 0.2 /100WBC [facility] Neutrophils Absolute Auto 4.4 2.0 - 8.3 x10*3/uL [facility] Imm Gran Abs Auto 0.09(H) 0.00 - 0.03 X10*3/uL [facility] Lymphocytes Absolute Auto 2.6 1.2 - 4.9 X10*3/uL [facility] Monocytes Absolute Auto 0.4 0.1 - 1.2 X10*3/uL [facility] Eosinophils Absolute Auto 0.4 0.0 - 0.4 X10*3/uL [facility] Basophils Absolute Auto 0.1 0.0 - 0.2 X10*3/uL [facility] NRBC Abs Auto 0.000 0.0 - 0.012 X10*3/uL [facility] Blood Venous blood specimen / Unknown 10/01/2024 2:33 PM EDT 10/01/2024 3:55 PM EDT Jessika Sandoval MD LAB BLOOD ORDERABLES Final Result Performing Organization Address [facility]/ZIP Co de Phone Number [facility] [address] [place] [address] [phone] * Hepatitis C Antibody with Reflex to HCV, RNA, Quantitative, Real-Time PCR (10/01/2024 2:33 PM EDT) Hepatitis C Antibody Nonreactive Nonreactive [facility] Comment:Antibodies to HCV no t detected; does not exclude early acuteHCV infection. Blood Venous blood specimen / Unknown 10/01/2024 2:33 PM EDT 10/01/2024 3:55 PM EDT Jessika Sandoval MD LAB BLOOD ORDERABLES Final Result Performing Organization Address [facility]/ZIP Co de Phone Number [facility] [address] [place] [phone] * (ABNORMAL) Prolactin (10/01/2024 2:33 PM EDT) Prolactin 24.2(A) 2.0 - 18.0 ng/mL [facility] Comment:THIS TEST WAS PERFOR MED AT:[employer] [place] [phone] ESPANA MD Blood Venous blood specimen / Unknown 10/01/2024 2:33 PM EDT 10/01/2024 3:55 PM EDT Jessika Sandoval MD LAB BLOOD ORDERABLES Final Result Performing Organization Address City/[facility]/ZIP Co de Phone Number [facility] [address] [place] [phone] [phone] * HIV-1/2 Antigen and Antibodies, Fourth Generation, with Reflexes (10/01/2024 2:33 PM EDT) HIV AB/AG Nonreactive Nonreactive [facility] Comment:HIV-1 p24 Ag and/or HIV-1/HIV-2 Ab not detected.A test result that is nonreactive does not exclude thepossibility of exposure to or infection with HIV-1 and/orHIV-2. Nonreactive results in this assay for individualswith prior exposure to HIV-1 and/or HIV-2 may be due toantigen and antibody levels that are below the limit ofdetection of this assay.The [employer] HIV Ag/Ab Combo assay result andsupplemental assay results should be interpreted inconjunction with the patient's clinical presentation,history and other laboratory results. If the results areinconsistent with clinical evidence, additional testing issuggested to confirm the result. Blood Venous blood specimen / Unknown 10/01/2024 2:33 PM EDT 10/01/2024 3:55 PM EDT us Jessika Sandoval MD LAB BLOOD ORDERABLES Final Result Performing Organization Address [facility] Co de Phone Number [facility] [address] [place] [address] [phone] * Hemoglobin A1c (10/01/2024 2:33 PM EDT) Hemoglobin A1c 5.7 <6.0 % [facility] Comment:Hemoglobin A1C Refer ence Range Adults: 4.8 - 6.0 % Non diabetic: < 6.0 % Goal: < 7.0 %Additional Action Suggested: > 8.0 %Note: Hemoglobin A1c results are invalid for patients with abnormal amounts of HbF. Blood transfusions may impact the HbA1c concentration in the patient sample. Estimated Average Glucose 117 mg/dL [facility] Comment:eAG = Estimated ave rage glucose which is %A1C expressed asaverage glucose, using the formula of the U1W-DppytugRivuett Glucose study (ADAG), Diabetes Care, Vol.31,#8,Oct. 2007 Blood Venous blood specimen / Unknown 10/01/2024 2:33 PM EDT 10/01/2024 3:55 PM EDT us Jessika Sandoval MD LAB BLOOD ORDERABLES Final Result Performing Organization Address City/[facility]/ZIP Co de Phone Number [facility] [address] [place] [phone] * (ABNORMAL) Lipid Panel, Standard (10/01/2024 2:33 PM EDT) Triglycerides 282(H) <150 mg/dL [facility] Comment:Desirable Triglyceri de: less than 150 mg/dLBorderline High Triglyceride 150-199 mg/dLHigh Triglyceride: 200-499 mg/dLVery High Triglyceride: greater than or equal to 5OO mg/dL Cholesterol 233(H) <200 mg/dL [facility] Comment:Desirable Cholestero l: less than 200 mg/dLBorderline High Cholesterol: 200-239 mg/dLHigh Cholesterol: greater than 239 mg/dL LDL Cholesterol Calculated 137(H) <100 mg/dL [facility] Comment:Desirable LDL: less than 100 mg/dLNear Optimal/Above Optimal LDL: 110- 129 mg/dLBorderline High LDL: 130-159 mg/dLHigh LDL: 160-189 mg/dLVery High LDL: greater than or equal to 190 mg/dL HDL Cholesterol 40(L) >40 mg/dL [facility] Comment:Desirable HDL: great er than 40 mg/dL Note: This HDL assay may give artificially low results in patients with liver disease. Blood Venous blood specimen / Unknown 10/01/2024 2:33 PM EDT 10/01/2024 3:55 PM EDT us Jessika Sandoval MD LAB BLOOD ORDERABLES Final Result [facility] [address] [place] [address] [phone] * (ABNORMAL) Comprehensive Metabolic Panel (10/01/2024 2:33 PM EDT) Sodium 139 135 - 145 mmol/L [facility] Potassium 3.9 3.3 - 5.1 mmol/L [facility] Chloride 107 96 - 108 mmol/L [facility] Carbon Dioxide 26 22 - 29 mmol/L [facility] Anion Gap 10(L) 12 - 20 [facility] Urea Nitrogen (BUN) 12 9 - 16 mg/dL [facility] Creatinine, Serum 0.91 0.5 - 1.4 mg/dL [facility] Estimated Glomerular Filt Rate >60 [facility] Comment:Chronic Kidney Disea se: Estimated GFR < 60 mL/min/1.48k2Ajsend Kidney Disease: Estimated GFR < 15 mL/min/1.73m2 Glucose 101 60 - 115 mg/dL [facility] Calcium 9.0 8.4 - 10.2 mg/dL [facility] Bilirubin, Total 0.2 0.0 - 1.0 mg/dL [facility] Aspartate Amino Transferase 36 5 - 37 U/L [facility] Alanine Aminotransferase 34 0 - 40 U/L [facility] Total Protein 6.6 6.5 - 8.0 g/dL [facility] Albumin Level 4.2 3.5 - 5.0 g/dL [facility] Alkaline Phosphatase 78 39 - 117 U/L [facility] Blood Venous blood specimen / Unknown 10/01/2024 2:33 PM EDT 10/01/2024 3:55 PM EDT us Jessika Sandoval MD LAB BLOOD ORDERABLES Final Result Performing Organization Address City/[facility]/ZIP Co de Phone Number [facility] [address] [place] [address] [phone] from Last 3 Months Insurance [facility] C3 Care Teams Night Warehouse Selector Relationship Specialty Start Date End Date Peterson Cavazos MD [address] [place] [phone] PCP - General Internal Medicine 09/14/24
--- OUTSIDE RECORDS SUMMARY | 2024-11-18 13:21 | XMS_ITS ---
Author Organization [employer] Address [address] [place] [id number] Care Team Providers Care Stemhole Borer And Topper Name Role Phone Peterson Cavazos MD Primary Care Provider [phone] [facility] Status:Enrolled (Active) Start date:06/18/2024 Enrollment date:09/15/2024 Enrollment reason:[facility] Overview [facility] Notification- Pt admitted to [facility] in [facility] on 06/16/24 for major depressive d/o. Please outreach for enrollment. Case Team Name Relationship Phone Jovany Vieyra(Responsible Staff) [phone] Continued Care and Services Coordination
== END ==
LOC: HO.CARD 12:43
PROVIDERS: Visit Provider Internal Medicine
DX: E87.70 Fluid overload, unspecified (principal); R60.0 Localized edema
CPT/HCPCS: 93306; Q9957

== ENCOUNTER → 2024-11-18 12:48 | Outpatient (BNV) | payer MEDICAID, SELFPAY | PROVIDERS: Visit Provider Internal Medicine | DX: R60.0 Localized edema (principal); E87.70 Fluid overload, unspecified | CPT/HCPCS: 93306 ==

== ENCOUNTER 2025-02-16 12:12 | Outpatient (REF) | payer MEDICAID, SELFPAY ==
--- OUTSIDE RECORDS SUMMARY | 2025-02-16 15:20 | XMS_ITS | Encounter Summary ---
Author Organization [employer] [facility] Address [address] [place] [address] [address], [place] [address] Care Team Providers Care Window Glass Installer Name Role Phone Peterson Cavazos MD Primary Care Provider [phone] Peterson Cavazos MD Primary Care Provider [phone] Encounter Details Date Type Department Care Team (Latest Contact Info) Description 10/09/2018 Abstract [facility] CONVERSIONS Dental, Provider, DDS Social History Tobacco [...] on filedocumented in this encounter Care Teams Window Glass Installer Relationship Specialty Start Date End Date Peterson Cavazos MD [address] [place] [address] PCP - General Internal Medicine 10/02/18 04/10/23 Peterson Cavazos MD [address] [place] [address] PCP - General Internal Medicine 09/14/24 documented as of this encounter
--- OUTSIDE RECORDS SUMMARY | 2025-02-16 15:20 | XMS_ITS | Clinical Summary ---
Author Organization [facility] Address [address] [facility] [address] [place] [address] Care Team Providers Care Performance Solutions Specialist Name Role Phone No Pcp, Per Patient [...] Years Used Date Smoking Tobacco: Former Cigarettes 2 Q uit: 2020 Smokeless Tobacco: Former Snuff, [...] Vaccines (1 - Tdap) 10/26/2007 10/25/19 08 Depression Screening 03/24/2024 COVID-19 Vaccine (1 - 2024-2 6 season) 2024 Influenza Vaccine (#1) 2024 HIB Vaccines Aged Out No longer eligi ble based on patient's age to complete this topic HPV Vaccines (No Doses Required) Completed Hepatitis A Vaccines Aged Out No long [...] patient's age to complete this topic Insurance [facility] Care Teams Performance Solutions Specialist Relationship Specialty Start Date End Date No Pcp, Per Patient SHANIQUE PCP - General 02/16/22
--- OUTSIDE RECORDS SUMMARY | 2025-02-16 15:20 | XMS_ITS | Encounter Summary ---
Author Organization [employer] Address [address] [facility] [address] [place] [address] Care Team Providers Care Training And Quality Manager Name Role Phone Peterson Cavazos MD Primary Care Provider Reason for Visit * Reason Onset Date Comments Lab Orders 01/31/2025 Encounter Details Date Type Department Care Team ([facility] st Contact Info) Description 01/31/2025 Telephone [facility] PEDS [address] [place] [address] Peterson Cavazos MD [address] [place] [address] Lab Orders Social History Tobacco Use Types Packs/Day Years Used Date Smoking Tobacco: Never Assessed Housing Stability Answer Date Recorded What is your housing situation today? I do not have housing (Staying with others, in a hotel, in a care home, living outside on the street, on a [...] AM EDT documented as of this encounter Miscellaneous Notes * Telephone Encounter - Ernesto Aaron - 01/31/2025 3:07 PM EST Tc from pt requesting another lab order to check for any kidney and liver complications. Any questions contact pt at [phone] documented in this encounter Plan of Treatment Not on file documented as of this encounter Visit Diagnoses Not on filedocumented in this encounter Care Teams Training And Quality Manager Relationship Specialty Start Date End Date Peterson Cavazos MD [address] [place] [phone] PCP - General Internal Medicine 09/14/24 documented as of this encounter
--- OUTSIDE RECORDS SUMMARY | 2025-02-16 15:20 | XMS_ITS | Clinical Summary ---
Author Organization [employer] Address [address] [place] [address] [address] [place] [address] Care Team Providers Care Registered Nurse Cardiovascular Icu Name Role Phone Peterson Cavazos MD Primary Care Provider [phone] Medications * This document contains information received [...] Problem Noted Date Diagnosed Date Delusional disorder (CMS/HCC) 10/01/2024 Assessment & Plan (10/01/2024 4:56 PM [...] Encounters Date Type Department Care Team Description 01/31/2025 Telephone [facility] MED [facility] PEDS [address] [place] [address] Peterson Cavazos MD Lab Orders 01/19/2025 Patient Outreach [address] [address] Peterson Cavazos MD Care Coordination ([facility]/W Harjit Weber f/u, program graduation ) 12/23/2024 Patient Outreach [address] [address] Peterson Cavazos MD Care Management ([facility]- f/u call) 12/13/2024 Patient Outreach [address] [address] Peterson Cavazos MD Care Management ([facility]- f/u call. Unable to leave v/m.) 12/03/2024 Patient Outreach [address] [address] Peterson Cavazos MD Care Management ([facility]- f/u call) 11/19/[address] [address] Peterson Cavazos MD Results 11/19/2024 Patient Outreach [address] [address] Peterson Cavazos MD Care Management ([facility]- f/u call. Unable to leave v/m.) from Last 3 Months Immunizations Immunization Administration Dates Next Due Td (adult), unspecified 10/25/2007 Social History Tobacco Use Types Packs/Day Years Used Date Smoking Tobacco: Never Assessed Housing Stability Answer Date Recorded What is your housing situation today? I do not have housing (Staying with others, in a hotel, in a fdc, living outside on the street, on a [...] of 3 - 19+ 3-dose series) 1997 Pneumococcal Vaccine: Pediat rics (0 to 5 Years) and At-Risk Patients (6 to 49) Years (1 of 2 - PCV) 1997 DTaP/Tdap/Td Vaccines (1 - Tdap) 10/26/2007 10/25/19 08 COVID-19 Vaccine (1 - 2024-2 6 season) 2024 Influenza Vaccine (#1) 2024 SDOH Screening 09/15/2025 [...] Procedure Name Priority Date/Time Associated Diagnosis Comments HEPATITIS C AB W/REFL TO HCV RNA, QN, PCR Routine 10/01/2024 2:33 PM EDT Hypervolemia, unspecified hypervolemia type HIV 1/2 ANTIGEN/ANTIBODY, FOURTH GENERATION W/RFL Routine 10/01/2024 2:33 PM EDT Hypervolemia, unspecified hypervolemia type HEMOGLOBIN A1C Routine 10/01/2024 2:33 PM EDT Hypervolemia, unspecified hypervolemia type LIPID PANEL, STANDARD Routine 10/01/2024 2:33 PM EDT Hypervolemia, unspecified hypervolemia type from Last 3 Months or Most Recently Relevant to Health Maintenance Results * Hepatitis C Antibody with Reflex to HCV, RNA, Quantitative, Real-Time PCR (10/01/2024 2:33 PM EDT) Pathologist [facility] Hepatitis C Antibody Nonreactive Nonreactive [facility] Comment:Antibodies to HCV no t detected; does not exclude early acuteHCV infection. Blood Venous blood specimen / Unknown 10/01/2024 2:33 PM EDT 10/01/2024 3:55 PM EDT us Jessika Sandoval MD LAB BLOOD ORDERABLES Final Result Performing Organization Address [facility] Co de Phone Number [facility] [address] [place] [phone] * HIV-1/2 Antigen and Antibodies, Fourth Generation, with Reflexes (10/01/2024 2:33 PM EDT) Pathologist [facility] HIV AB/AG Nonreactive Nonreactive [facility] Comment:HIV-1 p24 Ag and/or HIV-1/HIV-2 Ab not detected.A test result that is nonreactive does not exclude thepossibility of exposure to or infection with HIV-1 and/orHIV-2. Nonreactive results in this assay for individualswith prior exposure to HIV-1 and/or HIV-2 may be due toantigen and antibody levels that are below the limit ofdetection of this assay.The [employer] HIV Ag/Ab Combo assay result andsupplemental assay results should be interpreted inconjunction with the patient's clinical presentation,history and other laboratory results. If the results areinconsistent with clinical evidence, additional testing issuggested to confirm the result. Blood Venous blood specimen / Unknown 10/01/2024 2:33 PM EDT 10/01/2024 3:55 PM EDT us Jessika Sandoval MD LAB BLOOD ORDERABLES Final Result Performing Organization Address City/[facility]/ZIP Co de Phone Number [facility] [address] [place] [phone] * Hemoglobin A1c (10/01/2024 2:33 PM EDT) Hemoglobin A1c 5.7 <6.0 % [facility] Comment:Hemoglobin A1C Refer ence Range Adults: 4.8 - 6.0 % Non diabetic: < 6.0 % Goal: < 7.0 %Additional Action Suggested: > 8.0 %Note: Hemoglobin A1c results are invalid for patients with abnormal amounts of HbF. Blood transfusions may impact the HbA1c concentration in the patient sample. Estimated Average Glucose 117 mg/dL [facility] Comment:eAG = Estimated ave rage glucose which is %A1C expressed asaverage glucose, using the formula of the D4F-ZpciwupHaznrgp Glucose study (ADAG), Diabetes Care, Vol.31,#8,Oct. 2007 Blood Venous blood specimen / Unknown 10/01/2024 2:33 PM EDT 10/01/2024 3:55 PM EDT us Jessika Sandoval MD LAB BLOOD ORDERABLES Final Result [facility] [address] [place] [phone] * (ABNORMAL) Lipid Panel, Standard (10/01/2024 2:33 PM EDT) Triglycerides 282(H) <150 mg/dL [facility] Comment:Desirable Triglyceri de: less than 150 mg/dLBorderline High Triglyceride 150-199 mg/dLHigh Triglyceride: 200-499 mg/dLVery High Triglyceride: greater than or equal to 5OO mg/dL Cholesterol 233(H) <200 mg/dL [facility] Comment:Desirable Cholestero l: less than 200 mg/dLBorderline High Cholesterol: 200-239 mg/dLHigh Cholesterol: greater than 239 mg/dL LDL Cholesterol Calculated 137(H) <100 mg/dL [facility] Comment:Desirable LDL: less than 100 mg/dLNear Optimal/Above Optimal LDL: 110- 129 mg/dLBorderline High LDL: 130-159 mg/dLHigh LDL: 160-189 mg/dLVery High LDL: greater than or equal to 190 mg/dL HDL Cholesterol 40(L) >40 mg/dL [facility] Comment:Desirable HDL: great er than 40 mg/dL Note: This HDL assay may give artificially low results in patients with liver disease. Blood Venous blood specimen / Unknown 10/01/2024 2:33 PM EDT 10/01/2024 3:55 PM EDT us Jessika Sandoval MD LAB BLOOD ORDERABLES Final Result [facility] [address] [place] [phone] [phone] from Last 3 Months or Most Recently Relevant to Health Maintenance Insurance [facility] C3 Care Teams Registered Nurse Cardiovascular Icu Relationship Specialty Start Date End Date Peterson Cavazos MD [address] [place] [phone] PCP - General Internal Medicine 09/14/24
== END 2025-02-16 12:13 | disposition home or self-care (01) ==
LOC: HO.LAB 12:12
PROVIDERS: PCP Internal Medicine; Visit Provider Internal Medicine
DX: E22.1 Hyperprolactinemia (principal)
CPT/HCPCS: 36415; 84146